=== PATIENT | female | born 1990 | race Caucasian/White ===

== ENCOUNTER 2017-08-27 09:25 | Emergency (ER) | payer OTHER ==
[2017-08-27 09:26] VITALS: BMI 18.8
[2017-08-27 09:49] VITALS: TEMP 97.7
[2017-08-27] MEDS ORDERED: Sodium Chloride 0.9% 1,000 ML IV STA (09:54)
[2017-08-27 10:25] LABS: BASO % 0.6 % (0.0-2.0); EOS # 0.1 K/uL (0.0-0.7); EOS % 1.1 % (0.0-4.0); HEMOGLOBIN 12.6 g/dL (12.0-16.0); LYMPH # 1.3 K/uL (1.0-4.3); LYMPH % 23.9 % (20.0-40.0); MEAN CELL VOLUME 86.2 fl (81.0-99.0); MEAN CORPUSCULAR HEMOGLOBIN 29.1 pg (27.0-31.0); MEAN CORPUSCULAR HGB CONC 33.8 g/dL (33.0-37.0); MONO # 0.3 K/uL (0.0-0.8); MONO % 5.9 % (0.0-10.0); NEUT # 3.7 K/uL (1.8-7.0); NEUT % 68.5 % (50.0-75.0); RBC 4.33 Mil/uL (3.80-5.20); RED CELL DISTRIBUTION WIDTH 14.5 % (11.5-14.5); WHITE BLOOD COUNT 5.3 K/uL (4.8-10.8)
--- NOTE | 2017-08-27 10:38 | ED PDOC ---
HPI: Abdomen Time Seen by Provider: 08/27/17 09:34 Chief Complaint (Nursing): Abdominal Pain Chief Complaint (Provider): abdominal pain History Per: Patient History/Exam Limitations: no limitations Onset/Duration Of Symptoms: Hrs (today) Outside of [place] travel?: No Current Symptoms Are (Timing): Gone Now Associated Symptoms: denies: Fever, Chills, Nausea, Vomiting, Diarrhea, Chest Pain, Urinary Symptoms (dysuria) Additional Complaint(s): Sanjuana Wilkerson is a 27 year old female, with no significant past medical history , who presents to the emergency department via EMS complaining of a mild abdominal pain associated with blood in urine onset since this morning. Patient states the abdominal pain has resolved and reports she is currently on her menses that started today morning. Patient believes blood in urine might be from menses. She denies any new foods, fever, chills, nausea, vomit, diarrhea, dysuria, vaginal discharge, numbness or tingling, weakness, headache, dizziness , chest pain or shortness of breath. No further medical complaints. PMD: None provided. Abnormal Vaginal Bleeding: No Past Medical History Reviewed: Historical Data, Nursing Documentation, Vital Signs Vital Signs: Last Vital Signs Temp 97.7 F 08/27/17 09:39 Pulse 67 08/27/17 09:39 Resp 18 08/27/17 09:27 BP 87/58 L 08/27/17 09:39 Pulse Ox 94 L 08/27/17 10:46 - Medical History PMH: No Chronic Diseases Denies: Chronic Kidney Disease - Surgical History Surgical History: No Surg Hx - Family History Family History: States: No Known Family Hx - Social History Current smoker - smoking cessation education provided: No Alcohol: None Drugs: Denies - Immunization History Hx Tetanus Toxoid Vaccination: No Hx Influenza Vaccination: No Hx Pneumococcal Vaccination: No - Allergies Allergies/Adverse Reactions: Allergies Allergy/AdvReac Type Severity Reaction Status Date / Time No Known Allergies Allergy Verified 08/27/17 09:53 Review of Systems ROS Statement: Except As Marked, All Systems Reviewed And Found Negative Constitutional: Negative for: Fever, Chills Cardiovascular: Negative for: Chest Pain Respiratory: Negative for: Shortness of Breath Gastrointestinal: Positive for: Abdominal Pain (resolved). Negative for: Nausea , Vomiting, Diarrhea Genitourinary Female: Negative for: Dysuria, Vaginal Discharge, Vaginal Bleeding Neurological: Negative for: Weakness, Numbness, Headache, Dizziness Physical Exam - Reviewed Nursing Documentation Reviewed: Yes Vital Signs Reviewed: Yes - Physical Exam Appears: Positive for: Non-toxic, No Acute Distress Head Exam: Positive for: ATRAUMATIC, NORMOCEPHALIC Skin: Positive for: Normal Color, Warm, Dry Eye Exam: Positive for: Normal appearance, EOMI, PERRL Neck: Positive for: Painless ROM Cardiovascular/Chest: Positive for: Regular Rate, Rhythm. Negative for: Murmur Respiratory: Positive for: Normal Breath Sounds. Negative for: Respiratory Distress Gastrointestinal/Abdominal: Positive for: Normal Exam, Soft. Negative for: Tenderness (No left or right side, no periumbilical or epigastric ), Guarding, Rebound Back: Positive for: Normal Inspection. Negative for: L CVA Tenderness, R CVA Tenderness, Vertebral Tenderness Extremity: Positive for: Normal ROM (upper and lower extremities). Negative for : Deformity Neurologic/Psych: Positive for: Alert, Oriented. Negative for: Motor/Sensory Deficits - Laboratory Results Result Diagrams: 08/27/17 10:22 08/27/17 10:22 Interpretation Of Abn Labs: no acute - ECG O2 Sat by Pulse Oximetry: 94 (RA) Pulse Ox Interpretation: Abnormal - Progress ED Course And Treament: 1125: Stable. AAOx3. Pain free. Tolerated. In no pain since being in ER. Pt. symptoms likely from period that started today. Medical Decision Making Medical Decision Making: Time: 09:34 Initial Impression: abdominal pain resolved. Initial Plan: --CMP --Urine dip --Urine --Sodium Chloride 1,000 ml IV 1,000 mls/hr --Reevaluation ----- Scribe Attestation: Documented by Geoff Monaco, acting as a scribe for Fernando Lucero MD. Provider Scribe Attestation: All medical record entries made by the Scribe were at my direction and personally dictated by me. I have reviewed the chart and agree that the record accurately reflects my personal performance of the history, physical exam, medical decision making, and the department course for this patient. I have also personally directed, reviewed, and agree with the discharge instructions and disposition. Disposition - Clinical Impression Clinical Impression: Pelvic pain - Patient ED Disposition Is Patient to be Admitted: No Counseled Patient/Family Regarding: Studies Performed, Diagnosis, Need For Followup - Disposition Referrals: [facility] [Outside] - 08/28/17 Disposition: Routine/Home Disposition Time: 11:24 Condition: STABLE Additional Instructions: Return if not better in 3 days. Instructions: Acute Abdomen (Belly Pain) Forms: [facility] ([place]), [facility] School/Work Excuse
[2017-08-27 10:53] LABS: ALB/GLOB RATIO 1.6 (1.0-2.1); ALBUMIN 4.2 g/dL (3.5-5.0); ALT/SGPT 16 U/L (9-52); AST/SGOT 23 U/L (14-36); BLOOD UREA NITROGEN 11 mg/dl (7-17); CALCIUM 8.9 mg/dL (8.4-10.2); GFR AFRICAN-AMERICAN > 60; GFR NON-AFRICAN AMERICAN > 60
[2017-08-27 11:38] VITALS: BP 101/60; PULSE 70; RESP 17; O2SAT 97
== END 2017-08-27 11:27 | disposition home or self-care (01) ==
LOC: H.ER 09:25
DX: R10.2 Pelvic and perineal pain (principal)